=== PATIENT | female | born 2000 | race Caucasian/White ===

== ENCOUNTER 2019-09-01 18:58 | Emergency (ER) | payer OTHER, MEDICAID ==
[~2019-09-01] VITALS: Ht 157.5 cm; Wt 81.0 kg
[2019-09-01 19:29] VITALS: BP 135/75
== END 2019-09-01 20:56 | disposition home or self-care (01) ==
LOC: ED 20:15
DX: S43.102A Unspecified dislocation of left acromioclavicular joint, initial encounter (principal); F17.200 Nicotine dependence, unspecified, uncomplicated; W22.8XXA Striking against or struck by other objects, initial encounter; Y93.89 Activity, other specified; Y92.89 Other specified places as the place of occurrence of the external cause; Y99.8 Other external cause status
CPT/HCPCS: 99283

== ENCOUNTER 2019-09-04 16:09 | Emergency (ER) | payer OTHER, MEDICAID ==
[~2019-09-04] VITALS: Ht 157.5 cm; Wt 76.9 kg
[2019-09-04 17:25] LABS: BASOPHILS # (AUTO) 0.05 x10^3/uL (0-0.3); BASOPHILS % (AUTO) 0 % (0-1); EOSINOPHILS # (AUTO) 0.17 x10^3/uL (0-0.8); EOSINOPHILS % (AUTO) 1 % (1-7); LYMPHOCYTES % (AUTO) 22 % (22-44); MD NO; MEAN CORPUSCULAR HEMOGLOBIN 30.8 pg (27.0-34.8); MEAN CORPUSCULAR HGB CONC 33.1 g/dL (32.4-35.8); MEAN CORPUSCULAR VOLUME 93.3 fL (80-100); MEAN PLATELET VOLUME 9.7 fL (7.4-10.4); MONOCYTES # (AUTO) 0.72 x10^3/uL (0-1.4); MONOCYTES % (AUTO) 5 % (2-9); NEUTROPHILS # (AUTO) 10.21 x10^3/uL (1.8-8.0); NEUTROPHILS % (AUTO) 71 % (42-75); PLATELET COUNT 271 x10^3/uL (130-400); RED BLOOD COUNT 4.93 x10^6/uL (3.82-5.3); RED CELL DISTRIBUTION WIDTH 13.2 % (9.6-15.2)
[2019-09-04 17:34] LABS: ALBUMIN 3.8 g/dL (3.4-5.0); ANION GAP 4 mmol/L (5-15); CALCIUM 9.3 mg/dL (8.5-10.1); CHLORIDE 109 mmol/L (98-107); CREATININE 0.54 mg/dL (0.55-1.02)
--- NOTE | 2019-09-04 18:20 | NUR ---
PT WALKED BACK FROM LOBBY TO ROOM AT THIS TIME.
--- NOTE | 2019-09-04 18:31 | NUR ---
ASSUMED CARE OF PT. PT AMBULATORY TO ED ACCOMP BY MOM AND BROTHER. STS 6 WEEKS , STARTED BLEEDING PRIOR TO COMING TO ED. DESCRIBES IT "THE BEGINNING OF A PERIOD". DENIES PADS THAT ARE SATURATED. . C/O CRAMPING. C/O NAUSEA BUT HAS HAD NAUSEA THROUGHOUT . RATES CRAMPING /10. AMBULATORY. LABS IN TRIAGE, LABS WNL. AWAITING MD WALKER. VSS. CALL COWART IN REACH.
[2019-09-04 19:11] LABS: MICROSCOPIC AUTO
[2019-09-04 19:18] LABS: CULTURE INDICATED? YES
[2019-09-04] MEDS ORDERED: ONDANSETRON ODT 4 MG PO ONE (19:30)
[2019-09-04] MEDS ORDERED: ONDANSETRON ODT 4 MG ONE (19:41)
[2019-09-04 19:44] VITALS: BP 119/73
--- NOTE | 2019-09-04 19:44 | NUR ---
PT MEDICATED ORDERED FOR NAUSEA. PT REPORTS NAUSEA IS MOSTLY RESOLVED. PT AND FAMILY AT BEDSIDE AWARE WE ARE WAITING FOR RECHECK BY ERMD. PT DENIES PAIN/NEEDS. PT ON CONT BP AND O2 MONITORS. CALL LIGHT WITHIN REACH. WILL CONT TO MONITOR PT.
== END 2019-09-04 20:15 | disposition home or self-care (01) ==
LOC: ED 19:53
DX: O20.0 Threatened abortion (principal); O23.11 Infections of bladder in pregnancy, first trimester; I10 Essential (primary) hypertension; F17.200 Nicotine dependence, unspecified, uncomplicated; Z3A.01 Less than 8 weeks gestation of pregnancy
CPT/HCPCS: 36415; 76801; 80048; 81001; 82040; 84702; 85025; 86901; 87086; 99284; Q0162

== ENCOUNTER 2020-01-29 12:59 | Outpatient (CLI) | payer OTHER, MEDICAID ==
[~2020-01-29] VITALS: Ht 157.5 cm; Wt 76.3 kg
[2020-01-29 13:39] LABS: MICROSCOPIC NOT IND
[2020-01-29 13:52] LABS: AMPHETAMINE SCREEN, URINE Negative (Negative); BARBITURATE SCREEN, URINE Negative (Negative); BENZODIAZEPINE SCREEN, URINE Negative (Negative); CANNABINOID SCREEN, URINE Positive (Negative); COCAINE SCREEN, URINE Negative (Negative); METHADONE SCREEN, URINE Negative (Negative); OPIATE SCREEN, URINE Negative (Negative)
== END 2020-01-29 14:22 | disposition home or self-care (01) ==
LOC: LDOP 12:59
PROVIDERS: ATTEND Student in an Organized Health Care Education/Training Program
DX: O36.8120 Decreased fetal movements, second trimester, not applicable or unspecified (principal); O26.892 Other specified pregnancy related conditions, second trimester; R10.2 Pelvic and perineal pain; Z3A.27 27 weeks gestation of pregnancy
CPT/HCPCS: 80307; 81003; 87086; 99211; G0463